=== PATIENT | male | born 1975 | race Hispanic/Latino ===

== ENCOUNTER 2017-11-23 20:26 | Emergency (ER) | payer OTHER ==
[2017-11-23] MEDS ORDERED: IBUPROFEN 400 MG TAB ONE (21:01)
[2017-11-23 21:38] LABS: Urine Blood NEGATIVE (NEG); Urine Glucose NEGATIVE (NEG); Urine Protein NEGATIVE (NEG); Urine pH 5.5 (5.0-7.0)
--- NOTE | 2017-11-23 22:33 | EDPHYS ---
Physician Documentation [facility] Name: Nadja Sebastian Age: 42 yrs Sex: Male : 1975 Arrival Date: 11/23/2017 Time: 20:27 Bed 24 Private MD: ED Physician Kavon Lowe HPI: 11/23 21:39 This 42 yrs old Male presents to ER via Ambulatory with complaints of Flu cp Symptoms. Historical: - Allergies: 20:45 No Known Allergies; ak1 - Home Meds: 20:45 None [Active]; ak1 - PMHx: 20:45 None; ak1 - PSHx: 20:45 None; ak1 - Immunization history:: Adult Immunizations unknown. - Social history:: Smoking status: Patient/guardian denies using tobacco. ROS: 21:45 Constitutional: Positive for chills, fever, Negative for body aches, poor PO intake. cp 21:45 Eyes: Negative for injury, pain, redness, and discharge. cp 21:45 ENT: Positive for sore throat, Negative for drainage from ear(s), ear pain, difficulty swallowing, difficulty handling secretions. 21:45 Cardiovascular: Negative for chest pain, edema, palpitations. 21:45 Respiratory: Positive for cough, "sounds productive", shortness of breath, Negative for wheezing. 21:45 Abdomen/GI: Negative for abdominal pain, vomiting, diarrhea, constipation, black/tarry stool, rectal bleeding. 21:45 Back: Positive for pain at rest, pain with movement, of the right subscapular area and right mid back, Negative for injury or acute deformity. 21:45 : Negative for injury or acute deformity, urinary symptoms, testicular pain 21:45 Skin: Negative for cellulitis, rash. 21:45 Neuro: Negative for altered mental status, headache, weakness. 21:45 All other systems are negative. Exam: 21:52 Constitutional: The patient appears in no acute distress, alert, awake, cp non-diaphoretic, non-toxic, well developed, well nourished. 21:52 Head/Face: Normocephalic, atraumatic. Eyes: Pupils equal round and reactive to light, cp extra-ocular motions intact. Lids and lashes normal. Conjunctiva and sclera are non-icteric and not injected. Cornea within normal limits. Periorbital areas with no swelling, redness, or edema. ENT: Nares patent. No nasal discharge, no septal abnormalities noted. Tympanic membranes are normal and external auditory canals are clear. Oropharynx with no redness, swelling, or masses, exudates, or evidence of obstruction, uvula midline. Mucous membranes moist. Neck: Trachea midline, no thyromegaly or masses palpated, and no cervical lymphadenopathy. Supple, full range of motion without nuchal rigidity, or vertebral point tenderness. No Meningismus. Chest/axilla: Normal chest wall appearance and motion. Nontender with no deformity. No lesions are appreciated. 21:52 Cardiovascular: Rate: tachycardic, Rhythm: regular, Pulses: Pulses are 2+ in right radial artery and left radial artery. Edema: is not appreciated, JVD: is not appreciated. 21:52 Respiratory: the patient does not display signs of respiratory distress, Respirations: normal, no use of accessory muscles, no retractions, no splinting, no tachypnea, labored breathing, is not present, Breath sounds: are clear throughout, no decreased breath sounds, no stridor, no wheezing. 21:52 Abdomen/GI: Inspection: abdomen appears normal, Bowel sounds: active, all quadrants, Palpation: abdomen is soft and non-tender, in all quadrants, rebound tenderness, is not appreciated, voluntary guarding, is not appreciated, involuntary guarding, is not appreciated. 21:52 Back: pain, that is moderate, of the right subscapular area and right mid back, ROM is normal, vertebral tenderness, is not appreciated. 21:52 Skin: cellulitis, is not appreciated, no rash present. 21:52 Neuro: Orientation: to person, place \\T\\ time. Mentation: lucid, able to follow commands, Cerebellar function: is grossly normal, Motor: moves all fours, strength is normal, Sensation: is normal. Vital Signs: 20:43 BP 127 / 89; Pulse 108; Resp 18; Temp 101.1(O); Pulse Ox 96% on R/A; Weight 81.65 kg ak1 (R); Height 5 ft. 5 in. (165.10 cm) (R); Pain 7/10; 21:48 BP 120 / 82; Pulse 93; Resp 18; Temp 99.4; Pulse Ox 94% on R/A; kr2 23:00 BP 122 / 80; Pulse 94; Resp 17; Pulse Ox 97% on R/A; kr2 20:43 Body Mass Index 29.95 (81.65 kg, 165.10 cm) ak1 MDM: 21:09 Patient medically screened. cp 21:30 Differential diagnosis: bronchitis, flu, pneumonia, pyelonephritis, UTI. cp 22:28 Data reviewed: vital signs, nurses notes, lab test result(s), radiologic studies, plain cp films. 22:32 Counseling: I had a detailed discussion with the patient and/or guardian regarding: the cp historical points, exam findings, and any diagnostic results supporting the discharge/admit diagnosis, lab results, radiology results, the need for outpatient follow up, a family practitioner, to return to the emergency department if symptoms worsen or persist or if there are any questions or concerns that arise at home. 22:32 Response to treatment: the patient's symptoms have mildly improved after treatment, cp VSS. No signs of respiratory distress noted. Will discharge to home for continued monitoring, and as a result, I will discharge patient. 11/23 20:44 Order name: Flu ak1 11/23 20:44 Order name: Strep ak1 11/23 21:14 Order name: Group A Streptococcus Rapid Sc; Complete Time: 21:38 EDMS 11/23 21:15 Order name: Influenza Screen (A ; Complete Time: 21:38 EDMS 11/23 21:18 Order name: Urine Dipstick--Ancillary (enter results) rg2 11/23 21:38 Order name: Urine Dipstick-Ancillary; Complete Time: 22:29 EDMS 11/23 21:39 Order name: XRAY Chest Pa And Lat (2 Views) cp Administered Medications: 20:44 Drug: Ibuprofen 800 mg Route: PO; ak1 22:55 Drug: Augmentin 875 mg Route: PO; kr2 23:05 Follow up: Response: Medication administered at discharge. kr2 22:55 Drug: Zithromax 500 mg Route: PO; kr2 23:05 Follow up: Response: Medication administered at discharge. kr2 Disposition: 11/24 02:06 Co-signature as Attending Physician, Kavon Lowe MD. pkl Disposition: 11/23/17 22:31 Discharged to Home. Impression: Pneumonia due to other specified bacteria - Right Lung. - Condition is Stable. - Discharge Instructions: Pneumonia, Adult. - Prescriptions for Augmentin 875- 125 mg Oral Tablet - take 1 tablet by ORAL route every 12 hours for 10 days; 20 tablet. Zithromax Z- Dhruv 250 mg Oral Tablet - take 1 tablet by ORAL route as directed for 5 days Day 1 - take two (2) tablets one time. Day 2, 3, 4 , 5 take one (1) tablet once daily.; 6 tablet. Albuterol Sulfate 90 mcg/actuation - inhale 1-2 puff by INHALATION route every 4-6 hours; 1 Inhaler. Ibuprofen 800 mg Oral Tablet - take 1 tablet by ORAL route every 8 hours As needed take with food; 30 tablet. - Medication Reconciliation Form, Thank You Letter, Antibiotic Education, Prescription Opioid Use form. - Follow up: Private Physician; When: 2 - 3 days; Reason: Recheck today's complaints. - Problem is new. - Symptoms are unchanged. Signatures: Dispatcher [employer] EDKavon Motley MD MD pkl Krenek, Amber RN RN ak1 Pako Hull PA PA cp Reaves, Karey, RN RN kr2
--- NOTE | 2017-11-23 22:33 | ER ---
Nurse's Notes [facility] Name: Nadja Sebastian Age: 42 yrs Sex: Male : 1975 Arrival Date: 11/23/2017 Time: 20:27 Bed 24 Private MD: Diagnosis: Pneumonia due to other specified bacteria-Right Lung Presentation: 11/23 20:44 Presenting complaint: Patient states: lower back pain, body aches, fever, throat pain, ak1 cough, congestion X3 days. Transition of care: patient was not received from another setting of care. Onset of symptoms was November 20, 2017. Care prior to arrival: None. 20:44 Acuity: IRVIN 4 ak1 20:44 Method Of Arrival: Ambulatory ak1 Triage Assessment: 20:45 General: Appears in no apparent distress. Behavior is calm, cooperative. Pain: ak1 Complains of pain in throat, lower back. EENT: Oral mucosa is moist. Throat is reddened with gag reflex present. Neuro: No deficits noted. Cardiovascular: No deficits noted. Respiratory: Reports cough that is. GI: Reports nausea. : No signs and/or symptoms were reported regarding the genitourinary system. Derm: Reports fever. 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 Historical: - Allergies: 20:45 No Known Allergies; ak1 - Home Meds: 20:45 None [Active]; ak1 - PMHx: 20:45 None; ak1 - PSHx: 20:45 None; ak1 - Immunization history:: Adult Immunizations unknown. - Social history:: Smoking status: Patient/guardian denies using tobacco. Screenin:46 Abuse screen: Denies threats or abuse. Denies injuries from another. Nutritional ak1 screening: No deficits noted. Tuberculosis screening: No symptoms or risk factors identified. Fall Risk None identified. Assessment: 21:15 General: Appears in no apparent distress. comfortable, well groomed, well developed, kr2 well nourished, Behavior is calm, cooperative, appropriate for age. Pain: Denies pain. Neuro: Level of Consciousness is awake, alert, obeys commands, Oriented to person, place, time, situation, Appropriate for age. Cardiovascular: Capillary refill < 3 seconds in bilateral fingers Patient's skin is warm and dry. Respiratory: Reports cough that is productive, Airway is patent Respiratory effort is even, unlabored, Respiratory pattern is regular, symmetrical. GI: Abdomen is flat, non-distended. : No signs and/or symptoms were reported regarding the genitourinary system. EENT: Nares are clear bilaterally Oral mucosa is moist. Reports nasal congestion nasal discharge. Derm: Skin is intact, is healthy with good turgor, Skin is pink, warm \T\ dry. Musculoskeletal: Circulation, motion, and sensation intact. Vital Signs: 20:43 BP 127 / 89; Pulse 108; Resp 18; Temp 101.1(O); Pulse Ox 96% on R/A; Weight 81.65 kg ak1 (R); Height 5 ft. 5 in. (165.10 cm) (R); Pain 7/10; 21:48 BP 120 / 82; Pulse 93; Resp 18; Temp 99.4; Pulse Ox 94% on R/A; kr2 23:00 BP 122 / 80; Pulse 94; Resp 17; Pulse Ox 97% on R/A; kr2 20:43 Body Mass Index 29.95 (81.65 kg, 165.10 cm) ak1 ED Course: 20:27 Patient arrived in ED. al2 20:44 Arm band placed on Patient placed in waiting room, Patient notified of wait time. ak1 Antipyretics given from triage as ordered by an ER provider. flu and strep swabs sent to lab. 20:45 Triage completed. ak1 20:46 Patient has correct armband on for positive identification. ak1 21:07 Urine obtained. ak1 21:09 Pako Hull PA is PHCP. cp 21:09 Kavon Lowe MD is Attending Physician. cp 21:20 Jessica Rodriguez, PASCALE is Primary Nurse. kr2 22:25 X-ray completed. Portable x-ray completed in exam room. Patient tolerated procedure ag1 well. 23:00 No provider procedures requiring assistance completed. Patient did not have IV access kr2 during this emergency room visit. Administered Medications: 20:44 Drug: Ibuprofen 800 mg Route: PO; ak1 22:55 Drug: Augmentin 875 mg Route: PO; kr2 23:05 Follow up: Response: Medication administered at discharge. kr2 22:55 Drug: Zithromax 500 mg Route: PO; kr2 23:05 Follow up: Response: Medication administered at discharge. kr2 Outcome: 22:31 Discharge ordered by . taurus 23:00 Discharged to home ambulatory. kr2 23:00 Condition: good 23:00 Discharge instructions given to patient, Instructed on discharge instructions, follow up and referral plans. medication usage, Demonstrated understanding of instructions, follow-up care, medications, Prescriptions given X 4. 23:05 Patient left the ED. kr2 Signatures: Lynnette Lane RN RN ak1 Anuradha Penaloza ag1 Pako Hull PA PA cp Reaves, Karey, RN RN kr2 Gwen Orta2
[2017-11-23] MEDS ORDERED: AZITHROMYCIN 250 MG TAB ONE (23:07)
[2017-11-23] MEDS ORDERED: AMOX/K CLAV 875 MG TAB ONE (23:07)
[2017-11-23 23:13] VITALS: BP 120/82; TEMP 99.4; O2SAT 94
--- NOTE | 2017-11-24 10:53 | RAD REPORT ---
EXAM DESCRIPTION: Jihan Kimble And Lita (2 Views)11/23/2017 10:27 pm CLINICAL HISTORY: Cough COMPARISON: None FINDINGS: Mild opacities are present within the medial right lung base. The remainder of the lungs appear clear of Infiltrate. The heart is normal size IMPRESSION: Mild right pneumonia. This should be followed until it is clear to exclude a post obstr uctive process/underlying mass
== END 2017-11-23 23:05 | disposition home or self-care (01) ==
LOC: ER 20:26
DX: J15.8 Pneumonia due to other specified bacteria (principal)
CPT/HCPCS: 71046; 81003; 87070; 87081; 87804; 99283

== ENCOUNTER 2018-11-03 11:33 | Observation (INO) | payer BC, OTHER ==
--- NOTE | 2018-11-03 12:57 | RAD REPORT ---
EXAM DESCRIPTION: Jihan Single View11/03/2018 12:40 pm CLINICAL HISTORY: Chest pain COMPARISON: November 2017 FINDINGS: The lungs appear clear of acute infiltrate. The heart is normal size IMPRESSION: No acute abnormalities displayed
[2018-11-03] MEDS ORDERED: MORPHINE 2 MG/ML SYR ONE (13:09)
[2018-11-03] MEDS ORDERED: ONDANSETRON 4 MG/2 ML VIAL ONE (13:09)
[2018-11-03 13:16] LABS: Absolute Lymphocytes (CBC) 1.3 K/uL (0.7-4.9); Absolute Monocytes 0.6 K/uL (0.1-1.3); Absolute Neutrophil 4.4 K/uL (1.8-8.0); Basophils % 0.6 % (0-1.3); Eosinophils % 0.6 % (0-4.4); Hematocrit 44.5 % (39.6-49.0); MPV 8.2 fL (7.6-11.3); Monocytes % 8.7 % (3.3-12.3); RBC Red Blood Cell Count 4.75 M/uL (4.33-5.43)
[2018-11-03 13:20] LABS: Protime INR 1.13
[2018-11-03 13:35] LABS: ALT/SGPT 25 U/L (12-78); AST/SGOT 18 U/L (15-37); Albumin 4.2 g/dL (3.4-5.0); Alkaline Phosphatase 76 U/L (45-117); BUN Blood Urea Nitrogen 16 mg/dL (7-18); Bicarbonate 28 mmol/L (21-32); Bilirubin Direct 0.1 mg/dL (0-0.2); Bilirubin Total 0.6 mg/dL (0.2-1.0); Glucose Level 108 mg/dL (74-106); Magnesium 2.2 mg/dL (1.8-2.4); Potassium 4.7 mmol/L (3.5-5.1); Protein, Total 8.3 g/dL (6.4-8.2); Sodium Level 136 mmol/L (136-145); Troponin (Emerg Dept Use Only) < 0.02 ng/mL (0.0-0.045)
[2018-11-03 13:55] LABS: NT PRO-BNP < 5 pg/mL (<125)
--- NOTE | 2018-11-03 14:13 | EDPHYS ---
Physician Documentation [facility] Name: Nadja Sebastian Age: 43 yrs Sex: Male : 1975 Arrival Date: 11/03/2018 Time: 11:36 Bed 17 Private MD: None, None ED Physician Pako Corona HPI: 11/03 12:06 This 43 yrs old Male presents to ER via Ambulatory with complaints of Chest jmm Pain, Arm Pain, Headache. 12:06 The patient or guardian reports chest pain that is located primarily in the substernal jmm area. Onset: gradually, 1 day(s) ago. The pain radiates to the left arm, left neck. The chest pain is described as aching. Duration: The patient or guardian reports a single episode, that is still ongoing. This is a 43 year old male with a history of hlp that presents to the ED with complaints of left sided chest pain worsened with exertion beginning yesterday at around 6 pm. Patient states the pain radiates to the left arm and left side of his neck. . Historical: - Allergies: 11:48 No Known Allergies; hb - Home Meds: 11:48 gemfibrozil 600 mg Oral tab 1 tab 2 times per day [Active]; hb - PMHx: 11:48 Hyperlipidemia; hb - PSHx: 11:48 None; hb - Immunization history:: Adult Immunizations up to date. - Social history:: Smoking status: Patient/guardian denies using tobacco. - Ebola Screening: : No symptoms or risks identified at this time. ROS: 12:06 Constitutional: Negative for fever, chills, and weight loss. jmm 12:06 Cardiovascular: Positive for chest pain. 12:06 MS/extremity: Positive for pain. 12:06 All other systems are negative. Exam: 12:06 Constitutional: This is a well developed, well nourished patient who is awake, alert, jmm and in no acute distress. Head/Face: atraumatic. Eyes: EOMI, no conjunctival erythema appreciated ENT: Moist Mucus Membranes Neck: Trachea midline, Supple Chest/axilla: Normal chest wall appearance and motion. 12:06 Cardiovascular: Rate: normal, Rhythm: regular. 12:06 Respiratory: the patient does not display signs of respiratory distress, Respirations: normal, Breath sounds: are clear throughout. 12:06 Abdomen/GI: Inspection: abdomen appears normal, Bowel sounds: normal, Palpation: abdomen is soft and non-tender, in all quadrants. 12:06 Back: ROM is normal. 12:06 Musculoskeletal/extremity: ROM: intact in all extremities. 12:06 Skin: Appearance: Color: normal in color. 12:06 Neuro: Orientation: is normal, Mentation: is normal, Memory: is normal. Vital Signs: 11:46 BP 150 / 98; Pulse 90; Resp 18; Temp 98.3; Pulse Ox 100% on R/A; Pain 6/10; hb 12:30 BP 128 / 78; Pulse 77; Resp 18; Pulse Ox 99% on R/A; em 13:30 BP 122 / 77; Pulse 74; Resp 18; Pulse Ox 100% on R/A; Pain 0/10; em 14:30 BP 123 / 86; Pulse 71; Resp 16; Pulse Ox 99% on R/A; em 15:31 BP 124 / 83; Pulse 78; Resp 20; Pulse Ox 100% on R/A; em MDM: 12:06 Patient medically screened. ravinder 14:11 The patient was given aspirin in the Emergency Department. Data reviewed: vital signs, [facility] nurses notes, lab test result(s), EKG, radiologic studies, plain films. Data interpreted: Pulse oximetry: on room air is 100 %. Interpretation: normal. Counseling: I had a detailed discussion with the patient and/or guardian regarding: the historical points, exam findings, and any diagnostic results supporting the discharge/admit diagnosis, lab results, radiology results, the need for further work-up and treatment in the hospital. ED course: I discussed the patient with Dr. Mcmillan whom accepted admission. . 11/03 12:15 Order name: Basic Metabolic Panel; Complete Time: 13:57 [facility] 11/03 12:15 Order name: CBC with Diff; Complete Time: 13:57 [facility] 11/03 12:15 Order name: LFT's; Complete Time: 13:57 [facility] 11/03 12:15 Order name: Magnesium; Complete Time: 13:57 [facility] 11/03 12:15 Order name: NT PRO-BNP; Complete Time: 13:57 [facility] 11/03 12:15 Order name: PT-INR; Complete Time: 13:57 [facility] 11/03 12:15 Order name: Troponin (emerg Dept Use Only); Complete Time: 13:57 [facility] 11/03 12:15 Order name: XRAY Chest (1 view); Complete Time: 12:58 [facility] 11/03 12:15 Order name: EKG; Complete Time: 12:16 [facility] 11/03 12:15 Order name: Cardiac monitoring; Complete Time: 13:08 [facility] 11/03 12:15 Order name: EKG - Nurse/Tech; Complete Time: 12:42 [facility] 11/03 12:15 Order name: IV Saline Lock; Complete Time: 13:08 [facility] 11/03 12:15 Order name: Labs collected and sent; Complete Time: 13:08 [facility] 11/03 12:15 Order name: O2 Per Protocol; Complete Time: 13:08 [facility] 11/03 12:15 Order name: O2 Sat Monitoring; Complete Time: 13:08 [facility] Administered Medications: 13:07 Drug: Zofran 4 mg Route: IVP; Site: right antecubital; hb 14:49 Follow up: Response: No adverse reaction em 13:08 Drug: morphine 2 mg Route: IVP; Site: right antecubital; hb 14:49 Follow up: Response: No adverse reaction; Pain is decreased em 14:24 Drug: Aspirin Chewable Tablet 324 mg Route: PO; em 14:50 Follow up: Response: No adverse reaction em Disposition: 11/04 07:51 Co-signature as Attending Physician, Pako Corona MD I agree with the assessment and ravinder plan of care. Disposition: 11/03/18 14:12 Hospitalization ordered by Figueroa Mcmillan for Observation. Preliminary diagnosis is Chest pain, unspecified. - Bed requested for Telemetry/MedSurg (observation). - Status is Observation. em - Condition is Stable. - Problem is new. - Symptoms have improved. UTI on Admission? No Signatures: Dispatcher [employer] Pako Head MD MD cha Mickail, Joel, PA PA jmm Munoz, Edgar, CAMPAIGN WORKER CAMPAIGN WORKER Patricia Mcdonald ms, Heather, RN RN hb Corrections: (The following items were deleted from the chart) 11/03 15:21 14:12 Hospitalization Ordered by Figueroa Mcmillan DO for Observation. Preliminary ms diagnosis is Chest pain, unspecified. Bed requested for Telemetry/MedSurg (observation). Status is Observation. Condition is Stable. Problem is new. Symptoms have improved. UTI on Admission? No. jmm 15:50 15:21 11/03/2018 14:12 Hospitalization Ordered by Figueroa Mcmillan DO for Observation. em Preliminary diagnosis is Chest pain, unspecified. Bed requested for Telemetry/MedSurg (observation). Status is Observation. Condition is Stable. Problem is new. Symptoms have improved. UTI on Admission? No. ms
--- NOTE | 2018-11-03 14:13 | ER ---
Nurse's Notes [facility] Name: Nadja Sebastian Age: 43 yrs Sex: Male : 1975 Arrival Date: 11/03/2018 Time: 11:36 Bed 17 Private MD: None, None Diagnosis: Chest pain, unspecified Presentation: 11/03 11:46 Presenting complaint: Left sided chest pain that radiates to left arm and left side of hb neck that started while driving yesterday. Also c/o headache and nausea. Transition of care: patient was not received from another setting of care. Onset of symptoms was November 02, 2018. Risk Assessment: Do you want to hurt yourself or someone else? Patient reports no desire to harm self or others. Care prior to arrival: None. 11:46 Method Of Arrival: Ambulatory 11:46 Acuity: IRVIN 3 hb 12:15 Initial Sepsis Screen: Does the patient meet any 2 criteria? No. Patient's initial em sepsis screen is negative. Does the patient have a suspected source of infection? No. Patient's initial sepsis screen is negative. Historical: - Allergies: 11:48 No Known Allergies; hb - Home Meds: 11:48 gemfibrozil 600 mg Oral tab 1 tab 2 times per day [Active]; hb - PMHx: 11:48 Hyperlipidemia; hb - PSHx: 11:48 None; hb - Immunization history:: Adult Immunizations up to date. - Social history:: Smoking status: Patient/guardian denies using tobacco. - Ebola Screening: : No symptoms or risks identified at this time. Screenin:15 Abuse screen: Denies threats or abuse. Nutritional screening: No deficits noted. em Tuberculosis screening: No symptoms or risk factors identified. Fall Risk None identified. Assessment: 12:15 General: Appears in no apparent distress. comfortable, Behavior is calm, cooperative, em Denies fever. Pain: Complains of pain in anterior aspect of left upper chest Pain radiates to left jaw Pain currently is 6 out of 10 on a pain scale. Pain began 1 day ago. Neuro: Level of Consciousness is awake, alert, obeys commands, Oriented to person, place, time, situation, Reports headache in left. Cardiovascular: Reports chest pain, fatigue, shortness of breath, Denies diaphoresis, nausea, Capillary refill < 3 seconds Patient's skin is warm and dry. Rhythm is sinus arrythmia. Respiratory: Airway is patent Respiratory effort is even, unlabored, Respiratory pattern is regular, symmetrical, Breath sounds are clear bilaterally. Denies cough. GI: Abdomen is flat, Patient currently denies nausea, vomiting. Derm: Skin is intact, is healthy with good turgor, Skin is pink, warm \T\ dry. Musculoskeletal: Range of motion: intact in all extremities. 12:30 Reassessment: I agree with previous assessment. hb 13:00 Reassessment: Patient appears in no apparent distress at this time. Patient and/or em family updated on plan of care and expected duration. Pain level reassessed. Patient is alert, oriented x 3, equal unlabored respirations, skin warm/dry/pink. Patient denies pain at this time. Patient states feeling better. 13:55 Reassessment: Patient appears in no apparent distress at this time. Patient and/or em family updated on plan of care and expected duration. Pain level reassessed. Patient is alert, oriented x 3, equal unlabored respirations, skin warm/dry/pink. Patient denies pain at this time. Patient states feeling better. 14:57 Reassessment: Patient appears in no apparent distress at this time. Patient and/or em family updated on plan of care and expected duration. Pain level reassessed. Patient is alert, oriented x 3, equal unlabored respirations, skin warm/dry/pink. pending rooms assignment Patient denies pain at this time. Patient states feeling better. Vital Signs: 11:46 BP 150 / 98; Pulse 90; Resp 18; Temp 98.3; Pulse Ox 100% on R/A; Pain 6/10; hb 12:30 BP 128 / 78; Pulse 77; Resp 18; Pulse Ox 99% on R/A; em 13:30 BP 122 / 77; Pulse 74; Resp 18; Pulse Ox 100% on R/A; Pain 0/10; em 14:30 BP 123 / 86; Pulse 71; Resp 16; Pulse Ox 99% on R/A; em 15:31 BP 124 / 83; Pulse 78; Resp 20; Pulse Ox 100% on R/A; em ED Course: 11:36 Patient arrived in ED. mr 11:36 None, None is Private Physician. mr 11:46 Blaine Mccall, JOLENE is Primary Nurse. em 11:48 Triage completed. hb 11:48 Arm band placed on. EKG completed in triage. Results shown to MD. hb 12:01 Ovi Regan PA is PHCP. jmm 12:02 Pako Corona MD is Attending Physician. jmm 12:15 Patient has correct armband on for positive identification. Placed in gown. Call light em in reach. Side rails up X2. Adult w/ patient. hospital monitor on. Pulse ox on. NIBP on. 12:24 EKG done, by ED staff, reviewed by Ovi CHILD. em 12:41 XRAY Chest (1 view) In Process Unspecified. EDMS 13:00 Initial lab(s) drawn, by me, sent to lab. Inserted saline lock: 20 gauge in right em antecubital area, using aseptic technique. Blood collected. Patient maintains SpO2 saturation greater than 95% on room air. 14:12 Figueroa Mcmillan DO is Hospitalizing Provider. [facility] 15:38 No provider procedures requiring assistance completed. Patient admitted, IV remains in em place. Administered Medications: 13:07 Drug: Zofran 4 mg Route: IVP; Site: right antecubital; hb 14:49 Follow up: Response: No adverse reaction em 13:08 Drug: morphine 2 mg Route: IVP; Site: right antecubital; hb 14:49 Follow up: Response: No adverse reaction; Pain is decreased em 14:24 Drug: Aspirin Chewable Tablet 324 mg Route: PO; em 14:50 Follow up: Response: No adverse reaction em Outcome: 14:12 Decision to Hospitalize by Provider. [facility] 15:38 Admitted to Tele accompanied by tech, via wheelchair, room 425, with chart, Report em called to PASCALE Newby 15:38 Condition: good 15:38 Instructed on the need for admit, Demonstrated understanding of instructions. 15:50 Patient left the ED. em Signatures: Dispatcher [employer] EDOvi Hoover PA PA jmm CanTatiana mr Mccall, Blaine, JOLENE UNDERCOLLAR BASTER em Marybeth Deras RN RN hb
[2018-11-03] MEDS ORDERED: ASPIRIN 81 MG CHEWABLE TABLET ONE (14:33)
--- NOTE | 2018-11-03 14:35 | P.HP ---
Certification for Inpatient Patient admitted to: Observation With expected LOS: <2 Midnights Patient will require the following post-hospital care: None Practitioner: I am a practitioner with admitting privileges, knowledge of patient current condition, hospital course, and medical plan of care. Services: Services provided to patient in accordance with Admission requirements found in Title 42 Section 412.3 of the Code of Federal Regulations Patient History Date of Service: 11/03/18 Primary Care Provider: None Reason for admission: Chest pain History of Present Illness: 43-year-old male presented to the emergency room with chest pain. Patient reports chest pain since yesterday. Chest pain occurs at rest. Is mainly to the left side. It radiates the arm and neck. Associated with some mild shortness of breath and headaches. He has not had this type of pain before. There is a family history of Coronary artery disease. He does have a history of hypertriglyceridemia. In the ER patient evaluated. Vital signs stable. EKG showed no significant ST changes. Initial troponin unremarkable. Chest x-ray unremarkable. Lab unremarkable. Patient admitted for observation. When I saw the patient the ER, he appeared stable. No pain noted. Patient was given morphine with improvement Allergies No Known Allergies Allergy (Unverified 07/29/12 13:05) Home medications list reviewed: Yes - Past Medical/Surgical History Diabetic: No -: Hypertriglyceridemia -: Left ankle surgery Psychosocial/ Personal History: Patient is - Family History Father -: Heart disease, Hypertension - Social History Smoking Status: Never smoker Alcohol use: Yes CD- Drugs: No Caffeine use: Yes Place of Residence: Home Review of Systems General: As per HPI Eyes: Unremarkable ENT: Unremarkable Respiratory: Shortness of Breath, As per HPI Cardiovascular: Chest Pain, As per HPI Gastrointestinal: Unremarkable Genitourinary: Unremarkable Musculoskeletal: Unremarkable Integumentary: Unremarkable Neurological: Unremarkable Lymphatics: Unremarkable Physical Examination - Physical Exam General: Alert, In no apparent distress, Oriented x3, Cooperative HEENT: Atraumatic, Normocephalic, PERRLA, Mucous membr. moist/pink Neck: Supple, No Thyromegaly Respiratory: Clear to auscultation bilaterally, Normal air movement Cardiovascular: Normal pulses, Regular rate/rhythm Gastrointestinal: Normal bowel sounds, Soft and benign, Non-distended, No ascites, No tenderness, No masses, No rebound, No guarding Musculoskeletal: No erythema, No tenderness, No warmth Integumentary: No tenderness/swelling, No erythema, No warmth, No cyanosis Neurological: Normal speech, Normal strength at 5/5 x4 extr, Normal tone, Normal affect - Studies Laboratory Data (last 24 hrs) 11/03/18 13:00: PT 13.3 H, INR 1.13 11/03/18 13:00: WBC 6.3, Hgb 15.2, Hct 44.5, Plt Count 344 11/03/18 13:00: Sodium 136, Potassium 4.7, BUN 16, Creatinine 1.01, Glucose 108 H, Magnesium 2.2, Total Bilirubin 0.6, AST 18, ALT 25, Alkaline Phosphatase 76 Assessment and Plan - Plan Impression: Chest pain with family history of heart disease Hypertriglyceridemia Plan: Patient will be admitted for further evaluation. Will continue to monitor cardiac enzymes and telemetry. Will obtain lipid panel in the morning. Will continue with his Lopid but add fish oil 2000 mg twice daily. Will order echocardiogram and cardiac stress test to further evaluate. Cardiology consulted to further address as well. Will continue with aspirin, nitro as needed, and morphine as needed. If workup unremarkable then anticipate discharge tomorrow. I will turn over the service to Dr. Brown tomorrow. I will go over the plan of care with her. Discharge Plan: Home Plan to discharge in: 24 Hours - Advance Directives Does patient have a Living Will: No Does patient have a Durable POA for Healthcare: No - Code Status/Comfort Care Code Status Assessed: Yes (Patient full code.) Time Spent Managing Pts Care (In Minutes): 55
[2018-11-03] MEDS ORDERED: ACETAMINOPHEN 500 MG TAB PO PRN (16:07)
[2018-11-03] MEDS ORDERED: HYDRALAZINE HCL 20 MG/ML VIAL IV PRN (16:07)
[2018-11-03] MEDS ORDERED: ONDANSETRON 4 MG/2 ML VIAL IV PRN (16:07)
[2018-11-03] MEDS ORDERED: MORPHINE 2 MG/ML SYR IV PRN (16:07)
[2018-11-03] MEDS ORDERED: NITROGLYCERIN 0.4 MG/TAB SL PRN (16:07)
[2018-11-03 16:33] VITALS: BMI 29.9
[2018-11-03] MEDS: ENOXAPARIN 40 MG/0.4 ML SQ SCH (16:52)
[2018-11-03 16:57] LABS: CKMB Creatine Kinase MB < 1.0 ng/mL (0.3-3.6); Creatine Phosphokinase 87 U/L (39-308); Troponin I < 0.02 ng/mL (0.0-0.045)
[2018-11-03 17:04] LABS: Thyroid Stimulating Hormone 1.22 uIU/mL (0.360-3.740)
[2018-11-03 17:38] LABS: Urine Appearance CLEAR; Urine Bilirubin NEGATIVE (NEG); Urine Blood NEGATIVE (NEG); Urine Color YELLOW; Urine Glucose NEGATIVE (NEG); Urine Protein NEGATIVE (NEG); Urine Specific Gravity 1.025 (1.005-1.030); Urine Urobilinogen 0.2 mg/dL (0.2-1.0)
[2018-11-03] MEDS ORDERED: INFLUENZA VACCINE (for 3y+) 0.5 ML DOSE IMVAC ONE (18:00)
[2018-11-03 18:27] LABS: Urine Microscopic Reflex NO UMIC
[2018-11-03] MEDS: DOCOSAHEXANOIC AC/EPA 1000 MG PO SCH (20:38)
[2018-11-03] MEDS: GEMFIBROZIL 600 MG TAB PO SCH (20:40)
--- NOTE | 2018-11-03 22:44 | EKG ---
Test Date: 2018-11-03 Test Time: 12:21:51 Partnership Marketing Manager: BRIAN MEASUREMENT RESULTS: Intervals: Rate: 88 OK: 144 QRSD: 88 QT: 362 QTc: 438 [place]: P: 56 OK: 144 QRS: 22 T: 44 INTERPRETIVE STATEMENTS: Normal sinus rhythm with sinus arrhythmia Nonspecific T wave abnormality Abnormal ECG Compared to ECG 08/18/2010 04:34:56 T-wave abnormality now present Electronically Signed On 11-03-18 22:43:20 FOREIGN LANGUAGES PROFESSOR by Abner Lewis
[2018-11-04 01:17] LABS: CKMB Creatine Kinase MB < 1.0 ng/mL (0.3-3.6); Creatine Phosphokinase 83 U/L (39-308); Troponin I < 0.02 ng/mL (0.0-0.045)
[2018-11-04 04:23] LABS: Absolute Lymphocytes (CBC) 1.9 K/uL (0.7-4.9); Absolute Monocytes 0.6 K/uL (0.1-1.3); Basophils % 0.6 % (0-1.3); Eosinophils % 1.5 % (0-4.4); Hematocrit 43.3 % (39.6-49.0); Lymphocytes % 33.5 % (15.3-44.8); MPV 8.3 fL (7.6-11.3); Monocytes % 11.2 % (3.3-12.3); RBC Red Blood Cell Count 4.59 M/uL (4.33-5.43)
[2018-11-04 04:41] LABS: BUN Blood Urea Nitrogen 17 mg/dL (7-18); Bicarbonate 32 mmol/L (21-32); Glucose Level 94 mg/dL (74-106); HDL Cholesterol 35 mg/dL (40-60); LDL Cholesterol, Calculated ND (<130); Magnesium 2.3 mg/dL (1.8-2.4); Sodium Level 140 mmol/L (136-145)
[2018-11-04 05:17] LABS: LDL, Direct 160 mg/dL (100-129)
[2018-11-04] MEDS ORDERED: REGADENOSON 0.4 MG/5 ML SYR IV ONE (08:05)
[2018-11-04] MEDS ORDERED: ASPIRIN EC 81 MG TAB PO SCH (09:00)
[2018-11-04] MEDS: ENOXAPARIN 40 MG/0.4 ML SQ SCH (09:00)
--- NOTE | 2018-11-04 10:38 | CON ---
CARDIOLOGY CONSULT History Of Present Illness: Mr. Sebastian had an episode of chest pain, it was 3 p.m. yesterday, laste d just a few minutes. Since he has been in the hospital, EKGs and enzymes are normal. We plan to do a pharmacologic nuclear stress test and an echocardiogram and see if he has any evidence of CAD. He does not have exertional intolerance. Does not have diabetes or hypertension. He takes gemfibrozil 600 b.i.d. for hypertriglyceridemia but has mixed dyslipidemia and would really benefit from a high dose statin therapy. He uses no tobacco. Family History: Positive for CAD. Physical Examination: General: Five feet and 5 inches, weight 180 pounds. Obese, alert, oriented, pleasant, cooperative, no t in distress. Lungs: Clear. Heart: Exam normal. Abdomen: Soft. Extremities: Normal. Assessment And Plan: We will be ready to do a cardiac cath with a stress test or echo indicated, but I think he needs aggressive lipid management as an outpatient. KONSTANTIN Voice ID: [id number] Report ID: [id number]
[2018-11-04 12:38] VITALS: O2SAT 97
--- NOTE | 2018-11-04 14:24 | RAD REPORT ---
EXAM DESCRIPTION: NM - Rest Stress Cardiac Imaging - 11/04/2018 2:08 pm CLINICAL HISTORY: CP Chest pain. COMPARISON: No comparisons TECHNIQUE: The patient was administered approximately 10mCi of Tc 99m Sestamibi prior to resting SPE CT imaging of the heart. The patient was then administered approximately 30 mCi of Tc 99m Sestamibi f ollowing exercise or pharmacologic stress. Multiplanar SPECT images were reviewed. FINDINGS: No stress induced ischemic defect is seen to suggest stress induced ischemia. No fixed def ect is seen to suggest hibernating myocardium or scarred myocardium. The end diastolic volume is 77 ml, the end systolic volume is 31 ml, and the ejection fraction is 60 %. IMPRESSION: No stress induced ischemia.
[2018-11-04] MEDS: GEMFIBROZIL 600 MG TAB PO SCH (15:06)
[2018-11-04] MEDS: DOCOSAHEXANOIC AC/EPA 1000 MG PO SCH (15:07)
--- NOTE | 2018-11-04 15:29 | ECHO ---
HEIGHT: 5 ft 5 in WEIGHT: 180 lb 0 oz DATE OF STUDY: 11/04/[address]: Figueroa Mcmillan DO 2-DIMENSIONAL: YES M.MODE: YES DOPPLER: YES COLOR FLOW: YES TDS: NO PORTABLE: NO DEFINITY: NO BUBBLE STUDY: NO DIAGNOSIS: CHEST PAIN CARDIAC HISTORY: CATHERIZATION: NO SURGERY: NO PROSTHETIC VALVE: NO PACEMAKER: NO MEASUREMENTS (cm) DIASTOLIC (NORMALS) SYSTOLIC (NORMALS) IVSd 1.1 (0.6-1.2) LA Diam (1.9-4.0) LVEF 68% LVIDd 3.5 (3.5-5.7) LVIDs 2.2 (2.0-3.5) %FS 37% LVPWd 1.0 (0.6-1.2) Ao Diam 2.3 (2.0-3.7) 2 DIMENSIONAL ASSESSMENT: RIGHT ATRIUM: NORMAL LEFT ATRIUM: NORMAL RIGHT VENTRICLE: NORMAL LEFT VENTRICLE: NORMAL TRICUSPID VALVE: NORMAL MITRAL VALVE: NORMAL PULMONIC VALVE: NORMAL AORTIC VALVE: NORMAL PERICARDIAL EFFUSION: NONE AORTIC ROOT: NORMAL LEFT VENTRICULAR WALL MOTION: NORMAL. DOPPLER/COLOR FLOW: NORMAL. COMMENTS: NORMAL 2D ECHO WITH DOPPLER. TECHNOLOGIST: SEMAJ PARISH
--- NOTE | 2018-11-04 15:37 | TREADPHA ---
DX: CHEST PAIN Date of Study: 11/04/18 Ht: 5 5 Wt: 180 lb 0 oz Consulting Physician: TOBIAS MEDICATIONS: TYLENOL, ASPIRIN, LOVENOX, FISH OIL, NITROSTAT. HISTORY: 43 YEAR OLD MALE HERE FOR CHEST PAIN. HISTORY OF HYPERLIPIDEMIA. PHYSICIAL EXAMINATION: RESTING B.P.: 127/80 RESTING H.R.: 86 RESTING EKG: NORMAL. PROTOCOL: LEXISCAN EXERCISE TIME: 3:30 B.P. AT PEAK STRESS: 122/64 IMPRESSION: LEXISCAN STRESS TEST PERFORMED. CARDIOLITE INJECTED PER PROTOCOL. NO ARRHYTHMIAS NOTED. DENIES ANY CHEST PAIN. SEE NUCLEAR MEDICINE REPORT. NON DIAGNOSTIC EKG WITH LEXISCAN STRESS.
[2018-11-04] MEDS ORDERED: INFLUENZA VACCINE (for 3y+) 0.5 ML DOSE IMVAC ONE (17:00)
[2018-11-04 17:12] VITALS: BP 119/58; TEMP 97.4
--- NOTE | 2018-11-04 17:52 | P.SSS ---
Patient History Date of Service: 11/04/18 Primary Care Provider: None Reason for admission: Chest pain History of Present Illness: 43-year-old male presented to the emergency room with chest pain. Patient reports chest pain since yesterday. Chest pain occurs at rest. Is mainly to the left side. It radiates the arm and neck. Associated with some mild shortness of breath and headaches. He has not had this type of pain before. There is a family history of Coronary artery disease. He does have a history of hypertriglyceridemia. In the ER patient evaluated. Vital signs stable. EKG showed no significant ST changes. Initial troponin unremarkable. Chest x-ray unremarkable. Lab unremarkable. Patient admitted for observation. Allergies No Known Allergies Allergy (Unverified 07/29/12 13:05) Home Medications: Gemfibrozil 600 mg PO BID 11/03/18 - Past Medical/Surgical History Has patient received pneumonia vaccine in the past: No Diabetic: No -: Hypertriglyceridemia -: Left ankle surgery Psychosocial/ Personal History: Patient is - Family History Father -: Heart disease, Hypertension - Social History Smoking Status: Never smoker Alcohol use: No CD- Drugs: No Caffeine use: Yes Place of Residence: Home Review of Systems 10-point ROS is otherwise unremarkable Physical Examination - Vital Signs Temperature: 97.4 F Blood Pressure: 119/58 Pulse: 89 Respirations: 18 Pulse Ox (%): 96 - Physical Exam General: Alert, In no apparent distress HEENT: Atraumatic, PERRLA, Mucous membr. moist/pink, EOMI, Sclerae nonicteric Neck: Supple, 2+ carotid pulse no bruit, No LAD, Without JVD or thyroid abnormality Respiratory: Clear to auscultation bilaterally, Normal air movement Cardiovascular: Regular rate/rhythm, Normal S1 S2 Gastrointestinal: Normal bowel sounds, No tenderness Musculoskeletal: No tenderness Integumentary: No rashes Neurological: Normal gait, Normal speech, Normal strength at 5/5 x4 extr, Normal tone, Normal affect Lymphatics: No axilla or inguinal lymphadenopathy - Diagnosis (Problem(s)) (1) Atypical chest pain Status: Acute (2) Hypertriglyceridemia Status: Acute Treatment Summary: Overall during the hospital stay patient remained stable Patient was initially admitted to the hospital for atypical chest pain. Troponin x2 was negative. EKG was negative. Cardiology was consulted. Who recommended patient get a echocardiogram and stress test which were both negative for acute coronary syndrome. Patient then was discharged home under stable condition. Patient was asked to continue taking his triglyceride medication for hypertriglyceridemia - Disposition Condition: GOOD Diet: Regular Activity: Ad zora
== END 2018-11-04 17:15 | disposition home or self-care (01) ==
LOC: ER 11:33 → ERHOLD 14:25 → 4TH 15:36
PROVIDERS: ADMIT Family Medicine; ATTEND Family Medicine
DX: R07.89 Other chest pain (principal); E78.1 Pure hyperglyceridemia; Z82.49 Family history of ischemic heart disease and other diseases of the circulatory system; Z23 Encounter for immunization
CPT/HCPCS: 36415; 71045; 78452; 80048; 80061; 80076; 81003; 82550; 82553; 83735; 83880; 84439; 84443; 84484; 85025; 85610; 93005; 93017; 93306; 96374; 96375; 99285; A9500; G0008; G0378; J1650; J2270; J2405; J2785; Q2035

== ENCOUNTER 2022-03-23 10:00 | Emergency (ER) | payer BC, OTHER ==
[2022-03-23] MEDS ORDERED: ONDANSETRON 4 MG/2 ML VIAL ONE (10:18)
[2022-03-23] MEDS ORDERED: MORPHINE 4 MG/ML SYR ONE (10:18)
[2022-03-23 10:27] LABS: Absolute Lymphocytes (CBC) 1.5 K/uL (0.7-4.9); Hematocrit 40.2 % (39.6-49.0); Lymphocytes % 22.4 % (15.3-44.8); MCV 92.6 fL (80-100); MPV 7.2 fL (7.6-11.3); RBC Red Blood Cell Count 4.34 M/uL (4.33-5.43)
[2022-03-23 10:40] LABS: Potassium 4.3 mmol/L (3.5-5.1)
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
--- NOTE | 2022-03-23 10:53 | RAD REPORT ---
EXAM DESCRIPTION: RAD - Knee Right 3 View - 03/23/2022 10:37 am CLINICAL HISTORY: Right knee pain status post injury FINDINGS: No fracture or dislocation is seen.
--- NOTE | 2022-03-23 10:53 | RAD REPORT ---
EXAM DESCRIPTION: RAD - Hip Right 2 View - 03/23/2022 10:33 am CLINICAL HISTORY: Right hip pain FINDINGS: No fracture or dislocation is seen. If the patient continues to have symptoms to suggest an occult fracture then MRI would be recommended
--- NOTE | 2022-03-23 10:54 | RAD REPORT ---
EXAM DESCRIPTION: RAD - Elbow Left 3 View - 03/23/2022 10:35 am CLINICAL HISTORY: Left elbow pain status post trauma FINDINGS: No fracture or dislocation is seen.
--- NOTE | 2022-03-23 10:55 | RAD REPORT ---
EXAM DESCRIPTION: Jihan Single View03/23/2022 10:33 am CLINICAL HISTORY: Chest pain COMPARISON: 2019 FINDINGS: The lungs appear clear of acute infiltrate. The heart is normal size IMPRESSION: No acute abnormalities displayed
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
[2022-03-23] MEDS ORDERED: KETOROLAC 30 MG/ML INJ ONE (11:42)
[2022-03-23 11:47] VITALS: TEMP 98.3
[2022-03-23 11:49] VITALS: BP 127/84; O2SAT 96
--- NOTE | 2022-03-25 09:06 | EKG ---
Test Date: 2022-03-23 Test Time: 10:18:51 Lactation Nurse: PATTY MEASUREMENT RESULTS: Intervals: Rate: 91 DC: 152 QRSD: 88 QT: 362 QTc: 445 Dewey: P: 69 DC: 152 QRS: 34 T: 38 INTERPRETIVE STATEMENTS: Normal sinus rhythm Normal ECG Compared to ECG 11/03/2018 12:21:51 Sinus arrhythmia no longer present T-wave abnormality no longer present Electronically Signed On 03-25-22 09:03:21 CDT by Jamie Womack
== END 2022-03-23 11:41 | disposition home or self-care (01) ==
LOC: ER 10:00
DX: G89.11 Acute pain due to trauma (principal); V03.90XA Pedestrian on foot injured in collision with car, pick-up truck or van, unspecified whether traffic or nontraffic accident, initial encounter; E78.5 Hyperlipidemia, unspecified; Z20.822 Contact with and (suspected) exposure to COVID-19
CPT/HCPCS: 93005; 85025; 80048; 36415; 72131; 71045; 72170; 73502; 73080; 73562; 96375; 96374; 99284; U0003; J2405

== ENCOUNTER 2022-07-18 11:01 | Day surgery (SDC) | payer OTHER ==
[2022-07-14 08:58] LABS: Absolute Lymphocytes (CBC) 1.4 K/uL (0.7-4.9); Hematocrit 42.2 % (39.6-49.0); Lymphocytes % 33.6 % (15.3-44.8); MPV 7.2 fL (7.6-11.3); RBC Red Blood Cell Count 4.45 M/uL (4.33-5.43)
[2022-07-14 09:01] LABS: Protime INR 1.03
[2022-07-14 09:12] LABS: Specific Gravity 1.027 (1.005-1.030); Urine Bilirubin NEGATIVE (Negative); Urine Blood Negative (Negative); Urine Clarity Clear (Clear); Urine Color Yellow (Yellow); Urine Glucose NEGATIVE (Negative); Urine Protein NEGATIVE (Negative); Urine Urobilinogen Normal (Normal)
[2022-07-14 09:19] LABS: Potassium 4.3 mmol/L (3.5-5.1)
[2022-07-18] MEDS ORDERED: CEFAZOLIN SODIUM 2 GM/VIAL ONE (11:16)
[2022-07-18] MEDS ORDERED: Ringers Lactate 1,000 ML IV ONE (11:16)
[2022-07-18] MEDS ORDERED: LIDOCAINE 1% MPF 30 ML VIAL ONE (14:17)
[2022-07-18] MEDS ORDERED: BUPIVACAINE 0.25% PF 30 ML VIAL ONE (14:20)
[2022-07-18] MEDS ORDERED: BACITRACIN OINTMENT 14 GM TUBE TOP ONE (14:20)
[2022-07-18] MEDS ORDERED: propofoL 200 MG/20 ML VIAL IV ONE (16:25)
[2022-07-18] MEDS ORDERED: LIDOCAINE 2% MPF 5 ML VIAL ONE (16:25)
[2022-07-18] MEDS ORDERED: FENTANYL CITR 100 MCG/2 ML ONE (16:25)
[2022-07-18] MEDS ORDERED: dexAMETHasone 10 MG/ML VIAL ONE (16:42)
[2022-07-18] MEDS ORDERED: ONDANSETRON 4 MG/2 ML VIAL ONE (16:42)
[2022-07-18] MEDS ORDERED: KETOROLAC 30 MG/ML INJ ONE (16:42)
[2022-07-18] MEDS ORDERED: GLYCOPYRROLATE 0.2 MG/ML SYR ONE (16:58)
[2022-07-18] MEDS ORDERED: CODEINE 30MG/APAP 300MG TAB PO PRN (18:10)
[2022-07-18] MEDS ORDERED: CODEINE 30MG/APAP 300MG TAB ONE (18:55)
[2022-07-18 19:03] VITALS: BP 134/80; TEMP 97; O2SAT 95
--- NOTE | 2022-07-18 20:33 | OP ---
Surgeon: RAJ LUU Preoperative Diagnoses: 1.Phimosis. 2.History of prior penile bulking agent injection. Postoperative Diagnoses: 1.Phimosis. 2.History of prior penile bulking agent injection. Principal Procedures: 1.Sleeve circumcision. 2.Plastic surgical penile reconstruction/tissue rearrangement. 3.Penile block. Indication For Procedure: Mr. Sebastian presented to the Urology Clinic with a lumpy phallus desiring circumcision. He had some tissues with prior posthitis and phimosis that would develop associated wi th that. He desired to undergo circumcision and also noted the lumpiness beneath the skin of the pen is that he would like to have corrected if possible. Procedure In Detail: The patient was consented in the preoperative holding area before being transfe rred to the operative suite where general anesthesia was induced. He was given Ancef 2 g IV antimicr obial prophylaxis and pneumo boots were provided for DVT prophylaxis. Supine on the procedure table, his genitalia were shaved, prepped with Betadine and draped in standard fashion. The case was begun by performing a penile block using a 1:1 mixture of 0.25% Marcaine and 1% lidocaine. 10 cc was inje cted in the infrapubic midline dorsally as well as in the region of the neurovascular bundles bilater ally with a total of 30 cc approximately used. The procedure was then begun identifying a line for t he circumcision within the shaft skin at the iglesias of the glans. This was incised circumferentially and then a preputial margin line was identified approximately 1 cm within the prepuce proximal to th e coronal margin. The intervening skin was then incised in the dorsal midline and then fro m the underlying Chavez fascia by dividing the dartos layers until the intervening skin was completely removed. A careful fulguration was performed of any all bleeding vessels in the subcutaneous tissues . The previously observed lumpiness was associated with what appeared to be either silicone or perha ps collagen, though it was more silicone appearing, injected within the dorsal shaft of the penis cau sing lumpiness on the left side of the penis asymmetrically. As a result, tissue rearrangement was t hen performed by that lumpy silicone injected tissue by dividing it sharply from the inner most layer of the dermis and releasing the associated dartos fascia off Chavez fascia creating a flap o f tissue. That lumpy collagen or silicone injected tissue was then divided in the dorsal along the l ength of the shaft into 2 flaps, which were then rearranged and placed symmetrically in the dorsal haas rface of the penis overlying the dorsal midline until the bulkiness was distributed evenly in that re gion. This was sutured to the underlying Chavez fascia using 3-0 Vicryl. Then, the skin overlying the se tissue flaps was then approximated in the midline using 4 quadrant sutures of 3-0 chromic. The in tervening tissues were then approximated using a running horizontal mattress of 3-0 chromic suture. In the end, the cosmetic result was excellent and the phallus and subcutaneous tissues were symmetric in appearance. A Jeyson and Coban were applied for gentle pressure dressing and bacitracin was appli ed to the circumcision line in the glans. The patient was then awakened from general anesthesia, tra nsferred to a stretcher, and then transferred to the recovery room in good condition. Complications: None. Discharge Disposition: He should follow up with me in the Urology clinic somewhere in the next 2-6 w nicolas. EMELINA/MIKE Voice ID: [id number] Report ID: [id number]
== END 2022-07-18 19:00 | disposition home or self-care (01) ==
LOC: OR 11:01
PROVIDERS: ATTEND Urology
PROC: 0JX Subcutaneous Tissue and Fascia, Transfer (ICD-10-PCS; 2022-07-18)
PROC: 0VTTXZZ Resection of Prepuce, External Approach (ICD-10-PCS; principal; 2022-07-18 13:00)
DX: N47.1 Phimosis (principal); E29.1 Testicular hypofunction; E78.5 Hyperlipidemia, unspecified; N52.9 Male erectile dysfunction, unspecified
CPT/HCPCS: 85025; 80048; 36415; 85610; 88304; 81003; 54150; 14040; J2704; J2001; J3010; J1100; J7120; J2405

== ENCOUNTER 2022-11-07 08:06 | Emergency (ER) | payer OTHER ==
--- OUTSIDE RECORDS SUMMARY | 2022-11-07 08:09 | XMS REPORT | Continuity of Care Document ---
:1975 Author Organization [facility] t Address [address] [facility] [address] [place] [address] Care Team Providers Name Role Phone Behzad Brown Attending Clinician Unavailable Payers Payer Name Policy Type Policy Number Effective Date Expiration Date [place] [address] [id number] 2021 Common Sp gwen 00:00:00 [facility] Problems Condition Condition Condition Status Onset Resolution Last Treating Co mments Source Name Details Category Date Date Treatment Clinician Date [id number] Hypogonadi Problem Com mon sm in male Spirit [facility] [id number] Hypertrigl Problem Co mmon yceridemia [facility] [id number] Nonalcohol Problem Co mmon ic fatty Spirit liver - [facility] disease [facility] [id number] Mixed Problem Common hyperlipid Spirit emia - [facility] [id number] Enlarged Problem Commo n tonsils Spirit and - [facility] adenoids [facility] [id number] Body mass Problem Com mon index Spirit [BMI] - [facility] 31.0-31.9, [facility] [id number] Other Problem Common obesity Spirit due to - [facility] excess [facility] [id number] ED Problem Common (erectile Spirit dysfunctio - [facility] n) of [facility] [id number] Testicular Problem Co mmon hypofuncti Spirit on - [facility] [id number] Posthitis Problem Comm on [facility] Allergies, Adverse Reactions, Alerts This patient has no known allergies or adverse reactions. Social History Social Habit Start Date Stop Date Quantity Comments Source History of Tobacco Use Co mmon [facility] Sex Assigned At Com mon [facility] Smoking Status Start Date Stop Date Source Never Smoker Common [facility] Medications Ordered Filled Start Stop Current Ordering Indication Dosage Frequency Signature Comments Components Source Medication Medication Date Date Medication? Clinician (SIG) Name Name clomiPHENE clomiPHENE 2021-09 No QD clomiPHENE Citrate 50 Citrate 50 0-21 Citrate 50 MG MG 00:00: MG 00 clomiPHENE clomiPHENE 2021-09 No QD clomiPHENE Citrate 50 Citrate 50 0-21 Citrate 50 MG MG 00:00: MG 00 clomiPHENE clomiPHENE 2021-09 No QD clomiPHENE Citrate 50 Citrate 50 0-21 Citrate 50 MG MG 00:00: MG 00 clomiPHENE clomiPHENE 2021-09 No QD clomiPHENE Citrate 50 Citrate 50 0-21 Citrate 50 MG MG 00:00: MG 00 Tadalafil Tadalafil 2-0 2023- No Tadalafil 20 MG 20 MG 05-1705 20 MG 00:00: 00:00 00 :00 Tadalafil Tadalafil 2022-0 2023- No Tadalafil 20 MG 20 MG 05-17-05 20 MG 00:00: 00:00 00 :00 Tadalafil Tadalafil 2022-0 2023- No Tadalafil 20 MG 20 MG 05-17-05 20 MG 00:00: 00:00 00 :00 Tadalafil Tadalafil 2022-0 2023- No Tadalafil 20 MG 20 MG 05-17-05 20 MG 00:00: 00:00 00 :00 Tadalafil Tadalafil 2022-0 2023- No Tadalafil 20 MG 20 MG 05-17-05 20 MG 00:00: 00:00 00 :00 Tadalafil Tadalafil 2022-0 2023- No Tadalafil 20 MG 20 MG 05-17-05 20 MG 00:00: 00:00 00 :00 Tadalafil Tadalafil 2022-0 2023- No Tadalafil 20 MG 20 MG 05-1705 20 MG 00:00: 00:00 00 :00 Clotrimazol Clotrimazol 2021- No 1{appli BID Clotrimazo e-Betametha e-Betametha 05-17 cation} le-Betamet sone 1-0.05 sone 1-0.05 00:00: 00:00 hasone % % 00 :00 1-0.05 % Clotrimazol Clotrimazol 2021- No 1{appli BID Clotrimazo e-Betametha e-Betametha 05-17 cation} le-Betamet sone 1-0.05 sone 1-0.05 00:00: 00:00 hasone % % 00 :00 1-0.05 % Clotrimazol Clotrimazol 2021- No 1{appli BID Clotrimazo e-Betametha e-Betametha 05-17 cation} le-Betamet sone 1-0.05 sone 1-0.05 00:00: 00:00 hasone % % 00 :00 1-0.05 % Lipitor 10 Lipitor 10 No 1{table QD Lipitor 10 MG MG 2-04 t} MG 00:00: 00 Lipitor 10 Lipitor 10 No 1{table QD Lipitor 10 MG MG t} MG Lipitor 10 Lipitor 10 No 1{table QD Lipitor 10 MG MG t} MG Lipitor 20 Lipitor 20 No 1{table QD Lipitor 20 MG MG t} MG Lipitor 10 Lipitor 10 No 1{table QD Lipitor 10 MG MG t} MG Lipitor 10 Lipitor 10 No 1{table QD Lipitor 10 MG MG t} MG Lipitor 10 Lipitor 10 No 1{table QD Lipitor 10 MG MG t} MG Lipitor 10 Lipitor 10 No 1{table QD Lipitor 10 MG MG t} MG Lipitor 10 Lipitor 10 No 1{table QD Lipitor 10 MG MG t} MG Lipitor 10 Lipitor 10 No 1{table QD Lipitor 10 MG MG t} MG Vital Signs Vital Name Observation Time Observation Value Comments Source height 2022-10-13 10:30:00 65 [in_i] Common [facility] weight 2022-10-13 10:30:00 195 [lb_av] Common [facility] temperature 2022-10-13 10:30:00 97.0 [degF] Common [facility] bmi 2022-10-13 10:30:00 32.45 kg/m2 Common [facility] oximetry 2022-10-13 10:30:00 96 % Common [facility] respiratory rate 2022-10-13 10:30:00 16 /min Comm on [facility] blood pressure 2022-10-13 10:30:00 137 mm[Hg] Common [facility] - systolic [facility] blood pressure 2022-10-13 10:30:00 70 mm[Hg] Common [facility] - diastolic [facility] height 2022-08-21 14:45:00 65 [in_i] Common [facility] weight 2022-08-21 14:45:00 190 [lb_av] Common [facility] temperature 2022-08-21 14:45:00 97.6 [degF] Common [facility] bmi 2022-08-21 14:45:00 31.61 kg/m2 [facility] oximetry 2022-08-21 14:45:00 99 % Common [facility] respiratory rate 2022-08-21 14:45:00 18 /min Comm on [facility] blood pressure 2022-08-21 14:45:00 132 mm[Hg] Common [facility] - systolic [facility] blood pressure 2022-08-21 14:45:00 68 mm[Hg] Common [facility] - diastolic [facility] weight 2022-07-26 08:00:00 185 [lb_av] Common [facility] temperature 2022-07-26 08:00:00 97.6 [degF] Common S pirit [facility] bmi 2022-07-26 08:00:00 30.78 kg/m2 Common [facility] oximetry 2022-07-26 08:00:00 99 % Common [facility] respiratory rate 2022-07-26 08:00:00 16 /min Comm on [facility] blood pressure 2022-07-26 08:00:00 126 mm[Hg] Common [facility] - systolic [facility] blood pressure 2022-07-26 08:00:00 86 mm[Hg] Common [facility] - diastolic [facility] height 2022-07-26 08:00:00 65 [in_i] Common S [facility] weight 2022-06-30 10:00:00 187.6 [lb_av] [facility] temperature 2022-06-30 10:00:00 98.1 [degF] [facility] bmi 2022-06-30 10:00:00 31.21 kg/m2 [facility] oximetry 2022-06-30 10:00:00 96 % [facility] respiratory rate 2022-06-30 10:00:00 18 /min Comm on [facility] blood pressure 2022-06-30 10:00:00 144 mm[Hg] [facility] - systolic [facility] blood pressure 2022-06-30 10:00:00 84 mm[Hg] Common [facility] - diastolic [facility] height 2022-06-30 10:00:00 65 [in_i] Common [facility] height 2022-05-17 17:00:00 65 [in_i] Common [facility] weight 2022-05-17 17:00:00 184.8 [lb_av] [facility] temperature 2022-05-17 17:00:00 98.3 [degF] Common [facility] bmi 2022-05-17 17:00:00 30.75 kg/m2 Common [facility] oximetry 2022-05-17 17:00:00 99 % Common S pirit [facility] respiratory rate 2022-05-17 17:00:00 16 /min Comm on [facility] blood pressure 2022-05-17 17:00:00 131 mm[Hg] Common [facility] - systolic [facility] blood pressure 2022-05-17 17:00:00 80 mm[Hg] Common [facility] - diastolic [facility] height 2022-04-14 11:00:00 65 [in_i] Common [facility] weight 2022-04-14 11:00:00 187.4 [lb_av] [facility] temperature 2022-04-14 11:00:00 97.7 [degF] Common [facility] bmi 2022-04-14 11:00:00 31.18 kg/m2 Common [facility] oximetry 2022-04-14 11:00:00 97 % Common [facility] respiratory rate 2022-04-14 11:00:00 17 /min Comm on [facility] blood pressure 2022-04-14 11:00:00 131 mm[Hg] Common [facility] - systolic [facility] blood pressure 2022-04-14 11:00:00 79 mm[Hg] Common [facility] - diastolic [facility] height 2022-01-13 11:00:00 65 [in_i] Common S pirit [facility] weight 2022-01-13 11:00:00 188.4 [lb_av] Common [facility] temperature 2022-01-13 11:00:00 97.8 [degF] Common [facility] bmi 2022-01-13 11:00:00 31.35 kg/m2 Common S [facility] oximetry 2022-01-13 11:00:00 95 % Common [facility] respiratory rate 2022-01-13 11:00:00 17 /min Comm on [facility] blood pressure 2022-01-13 11:00:00 137 mm[Hg] Common [facility] - systolic [facility] blood pressure 2022-01-13 11:00:00 85 mm[Hg] Common [facility] - diastolic [facility] height 2021-10-14 08:20:00 65 [in_i] [facility] weight 2021-10-14 08:20:00 190.3 [lb_av] Common [facility] temperature 2021-10-14 08:20:00 97.3 [degF] [facility] bmi 2021-10-14 08:20:00 31.66 kg/m2 [facility] oximetry 2021-10-14 08:20:00 96 % [facility] respiratory rate 2021-10-14 08:20:00 17 /min Comm on [facility] blood pressure 2021-10-14 08:20:00 114 mm[Hg] Common [facility] - systolic [facility] blood pressure 2021-10-14 08:20:00 52 mm[Hg] Common [facility] diastolic [facility] Procedures This patient has no known procedures. Encounters Start End Encounter Admission Attending Care Care Encounter Source Date/Time Date/Time Type Type Clinicians Facility Department ID 2022-10-11 Outpatient Brown, STLMLC STLMLC [id number] Common 14:07:03 Behzad [id number] [facility] 2021-10-13 Outpatient Brown, STLMLC STLMLC [id number] Common 09:11:02 Behzad [facility] 2021-10-05 Outpatient Brown, STLMLC STLMLC [id number] Common 12:59:55 Behzad [id number] [facility] 2022-10-13 2022-10-13 OFFICE STLMLC STLMLC [id number] Co mmon 00:00:00 00:00:[address] [facility] 4 [facility] 2022-08-21 2022-08-21 OFFICE STLMLC STLMLC [id number] Co mmon 00:00:00 00:00:00 VISIT Spirit ESTAB PT - [facility]I LEVEL 2 [facility] 2022-07-26 2022-07-26 OFFICE STLMLC STLMLC [id number] Co mmon 00:00:00 00:00:00 VISIT Spirit ESTAB PT - [facility] LEVEL 2 [facility] 2022-06-30 2022-06-30 OFFICE STLMLC STLMLC [id number] Co mmon 00:00:00 00:00:00 VISIT EST Spir it PT LEVEL 3 - [facility] 2022-05-19 2022-05-19 (TEL) STLMLC STLMLC [id number] Co mmon 00:00:00 00:00:00 [facility] 2022-05-17 2022-05-17 OFFICE STLMLC STLMLC [id number] Co mmon 00:00:00 00:00:00 VISIT NEW Spir it PT LEVEL 4 - [facility] 2022-05-17 2022-05-17 (TEL) STLMLC STLMLC [id number] Co mmon 00:00:00 00:00:00 [facility] 2022-04-14 2022-04-14 OFFICE STLMLC STLMLC [id number] Co mmon 00:00:00 00:00:00 VISIT EST Spir it PT LEVEL 3 [facility] 2022-01-13 2022-01-13 PREV VISIT STLMLC STLMLC [id number] Common 00:00:00 00:00:00 EST AGE Flo 40-64 - [facility] 2021-10-14 2021-10-14 OFFICE STLMLC STLMLC [id number] Co mmon 00:00:00 00:00:00 VISIT Spirit ESTAB PT - [facility]I LEVEL 4 [facility] 2021-02-02 2021-02-02 Outpatient STLMLC STLMLC [id number] Common 00:00:00 00:00:00 [facility] 2021-01-12 2021-01-12 Outpatient STLMLC STLMLC [id number] Common 00:00:00 00:00:00 [facility] Results This patient has no known results.
[2022-11-07 08:38] LABS: Absolute Lymphocytes (CBC) 0.8 K/uL (0.7-4.9); Hematocrit 41.1 % (39.6-49.0); Lymphocytes % 15.5 % (15.3-44.8); MCV 94.7 fL (80-100); MPV 7.1 fL (7.6-11.3); RBC Red Blood Cell Count 4.35 M/uL (4.33-5.43)
[2022-11-07] MEDS ORDERED: MECLIZINE HCL 12.5 MG TAB ONE (08:38)
[2022-11-07 08:55] LABS: Potassium 4.3 mmol/L (3.5-5.1); Troponin High Sensitivity 5.1 pg/mL (<58.9)
--- NOTE | 2022-11-07 08:57 | RAD REPORT ---
EXAM DESCRIPTION: CT - Head Brain Wo Cont - 11/07/2022 8:36 am CLINICAL HISTORY: DIZZINESS COMPARISON: No comparisons TECHNIQUE: Noncontrast head CT images ad were obtained without IV contrast. Multiplanar reformats we re generated and reviewed. All CT scans are performed using dose optimization technique as appropriate and may include automated exposure control or mA/KV adjustment according to patient size. FINDINGS: No intracranial hemorrhage, mass, or edema. Midline structures are unremarkable. Normal ventricular caliber for age. Bruno-white matter differentiation is preserved, without evidence of acute infarct. No abnormal extra- axial fluid collections. Mastoid air cells and visualized portions of the paranasal sinuses are clear. No acute bony findings. IMPRESSION: No evidence of an acute intracranial process.
--- NOTE | 2022-11-07 10:17 | RAD REPORT ---
EXAM DESCRIPTION: CT - Head angio - 11/07/2022 9:45 am CLINICAL HISTORY: DIZZINESS COMPARISON: Head Brain Wo Cont dated 11/07/2022 TECHNIQUE: Axial CT angiography images of the head was performed with multiplanar and maximum intens ity projection reconstructions. Images performed following intravenous administration of 95mL Isovue 370. All CT scans are performed using dose optimization technique as appropriate and may include automated exposure control or mA/KV adjustment according to patient size. FINDINGS: No evidence of large vessel occlusion. No evidence of aneurysm or dissection flap is detec sariah. No flow-limiting stenosis or vascular malformation identified. Antegrade flow is seen in the vertebral arteries. The vertebral arteries are codominant. The visualized dural venous sinuses are grossly patent. IMPRESSION: No evidence of large vessel occlusion or flow-limiting stenosis.
--- NOTE | 2022-11-07 10:25 | RAD REPORT ---
EXAM DESCRIPTION: CT - Neck Angio - 11/07/2022 9:45 am CLINICAL HISTORY: dizziness COMPARISON: Head angio dated 11/07/2022 TECHNIQUE: Axial CT angiography images of the head was performed with multiplanar and maximum intens ity projection reconstructions. Images performed following intravenous administration of 85mL Isovue 370. All CT scans are performed using dose optimization technique as appropriate and may include automated exposure control or mA/KV adjustment according to patient size. FINDINGS: A left aortic arch is identified with normal three vessel configuration of the great vesse ls. No significant flow abnormality is seen of the common carotid bilaterally. No significant stenosis is identified involving the cervical segments of both internal carotid arteri es. Normal flow is seen within both vertebral arteries. IMPRESSION: No significant flow abnormality of the neck vessels is identified.
--- NOTE | 2022-11-07 10:46 | RAD REPORT ---
EXAM DESCRIPTION: MRI - Brain Wo Cont - 11/07/2022 10:09 am CLINICAL HISTORY: DIZZINESS COMPARISON: Head CT and CT angiogram of earlier the same day TECHNIQUE: Multiplanar multisequence MRI of the brain performed without IV contrast. FINDINGS: Motion artifact somewhat limits evaluation, despite attempts at repeat imaging. No evidence of acute infarct or other diffusion signal abnormality. No evidence of acute intracranial hemorrhage or abnormal extra-axial fluid collections. Ventricles are within normal for age. Midline structures are unremarkable. Mild burden of scattered subcortical and deep white matter T2/FLAIR hyperintensities, nonspecific, bu t may suggest chronic small vessel ischemic changes. Other differential considerations include vascul ar migraine, sequelae of prior infectious or inflammatory process, less likely demyelinating disease. No mass effect or midline shift. Major vascular flow voids are preserved. Mastoid air cells and paranasal sinuses are clear. IMPRESSION: No acute intracranial process. No evidence of ventriculomegaly or mass effect. Mild burden of nonspecific white matter T2 hyperintensities, most suggestive of early chronic small v essel ischemic changes.
--- NOTE | 2022-11-07 10:55 | EDPHYS ---
Physician Documentation [facility] Name: Nadja Sebastian Age: 47 yrs Sex: Male : 1975 Arrival Date: 11/07/2022 Time: 08:08 Bed 8 Private MD: Behzad Brown ED Physician Pedro Foote HPI: 11/07 08:16 This 47 yrs old Male presents to ER via Ambulatory with complaints of jmm Dizziness, Nausea, Numbness Of Hand. 08:16 The patient presents with dizziness. Onset: The symptoms/episode began/occurred jmm acutely. Modifying factors: The symptoms are alleviated by nothing, the symptoms are aggravated by standing up, changing position. Is a 47-year-old male with history of hyperlipidemia the presents emerged department with complaints of dizziness when he awoke. Patient states he felt normal last night before going to bed. States that he feels lightheaded like he is going to collapse when he stands up. Also complains of some numbness to his right hand. Denies unilateral weakness.. Historical: - Allergies: 08:21 No Known Allergies; ap3 - Home Meds: 08:21 atorvastatin oral [Active]; ap3 - PMHx: 08:21 Hyperlipidemia; ap3 - Immunization history:: Adult Immunizations up to date. - Social history:: Smoking status: Patient denies any tobacco usage or history of. Patient uses alcohol, only on a social basis. ROS: 08:16 Constitutional: Negative for fever, chills, and weight loss, Cardiovascular: Negative jmm for chest pain, palpitations, and edema, Respiratory: Negative for shortness of breath, cough, wheezing, and pleuritic chest pain. 08:16 Neuro: Positive for dizziness. 08:16 All other systems are negative. Exam: 08:16 Constitutional: This is a well developed, well nourished patient who is awake, alert, jmm and in no acute distress. Head/Face: atraumatic. 08:16 Neck: Trachea midline, Supple Chest/axilla: Normal chest wall appearance and motion. Cardiovascular: Regular rate and rhythm. No edema appreciated Respiratory: Normal respirations, no respiratory distress appreciated Abdomen/GI: Non distended Back: Normal ROM Skin: General appearance color normal MS/ Extremity: Moves all extremities, no obvious deformities appreciated, no edema noted to the lower extremities 08:16 Eyes: Nystagmus: Horizontal nystagmus noted bilaterally, fatigable. 08:16 Neuro: Orientation: is normal, Mentation: is normal, Memory: is normal, Cerebellar function: normal finger to nose testing, heel to dacosta testing is normal, Motor: is normal. 08:16 Psych: Behavior/mood is pleasant, cooperative. Vital Signs: 08:19 BP 135 / 91; Pulse 81; Resp 18; Temp 97.9; Pulse Ox 96% on R/A; Weight 83.91 kg; Height ap3 5 ft. 5 in. (165.10 cm); 09:33 BP 126 / 84; Pulse 66; Resp 17; Pulse Ox 97% on R/A; ll1 10:19 BP 135 / 90; Pulse 82; Resp 17; ll1 11:08 BP 123 / 81; Pulse 81; Resp 17; Pulse Ox 97% on R/A; Pain 0/10; ll1 08:19 Body Mass Index 30.79 (83.91 kg, 165.10 cm) ap3 MDM: 08:16 Patient medically screened. [facility] 10:54 Data reviewed: vital signs, nurses notes. [facility] 15:54 Differential diagnosis: CVA, vertigo, acute [place]. Data reviewed: vital signs, nurses [facility] notes. Consideration of Admission/Observation. I considered the following discharge prescriptions or medication management in the emergency department Medications were administered in the Emergency Department. See MAR. Historians other than the Patient: . Counseling: I had a detailed discussion with the patient and/or guardian regarding: the historical points, exam findings, and any diagnostic results supporting the discharge/admit diagnosis, lab results, radiology results, to return to the emergency department if symptoms worsen or persist or if there are any questions or concerns that arise at home. ED course: Symptoms alleviated in the ED. Patient is able ambulate without difficulty. Do not currently suspect a central cause of vertigo. Patient advised to follow-up with neurology for further evaluation otherwise given strict return precautions. Patient and understood and agrees plan of care. 11/07 08:23 Order name: Basic Metabolic Panel [facility] 11/07 08:23 Order name: CBC with Diff [facility] 11/07 08:23 Order name: Troponin HS [facility] 11/07 08:41 Order name: CBC with Automated Diff; Complete Time: 08:41 EDDE 11/07 08:55 Order name: Basic Metabolic Panel; Complete Time: 09:15 [facility] 11/07 08:55 Order name: Troponin High Sensitivity; Complete Time: 09:15 [facility] 11/07 08:23 Order name: EKG; Complete Time: 08:24 [facility] 11/07 08:23 Order name: Cardiac monitoring; Complete Time: 08:46 [facility] 11/07 08:23 Order name: CT Head Brain wo Cont [facility] 11/07 08:57 Order name: CT; Complete Time: 09:15 [facility] 11/07 09:16 Order name: Head Angio CT; Complete Time: 10:19 [facility] 11/07 09:16 Order name: Neck Angio CT; Complete Time: 10:25 [facility] 11/07 09:16 Order name: MRI - Brain Wo Cont; Complete Time: 10:53 [facility] 11/07 08:23 Order name: EKG - Nurse/Tech; Complete Time: 08:46 [facility] 11/07 08:23 Order name: IV Saline Lock; Complete Time: 08:24 [facility] 11/07 08:23 Order name: Labs collected and sent; Complete Time: 08:24 [facility] 11/07 08:23 Order name: O2 Per Protocol; Complete Time: 08:24 [facility] 11/07 08:23 Order name: O2 Sat Monitoring; Complete Time: 08:24 [facility] Administered Medications: 08:46 Drug: Meclizine 50 mg Route: PO; ll1 09:33 Follow up: Response: No adverse reaction; RASS: Alert and Calm (0) ll1 Disposition: 16:30 Co-signature as Attending Physician, Pedro Foote MD I reviewed the patient's care rn provided by the Advanced Practice Provider and agree with the diagnosis and treatment plan. Disposition Summary: 11/07/22 10:55 Discharge Ordered Location: Home [facility] Condition: Stable [facility] Diagnosis - Dizziness and giddiness [facility] Followup: [facility] - With: Logan Balderas MD - When: 2 - 3 days - Reason: Recheck today's complaints, Continuance of care, Re-evaluation by your physician Followup: [facility] - With: Edgar Rodas MD - When: 2 - 3 days - Reason: Recheck today's complaints, Continuance of care, Re-evaluation by your physician Discharge Instructions: - Discharge Summary Sheet [facility] - Dizziness [facility] Forms: - Medication Reconciliation Form jmm - Thank You Letter jmm - Antibiotic Education jmm - Prescription Opioid Use jmm - Work release form sp4 Prescriptions: - Meclizine 25 mg Oral Tablet - take 1 tablet by ORAL route every 8 hours As needed; 30 tablet; Refills: 0, jmm Product Selection Permitted Signatures: Dispatcher [employer] EDOvi Hoover PA PA jmm Nieto, Roman, MD MD rn Prokisch, Amanda RN RN ap3 Netta Mccallum RN RN ll1
--- NOTE | 2022-11-07 10:55 | ER ---
Nurse's Notes [facility] Name: Nadja Sebastian Age: 47 yrs Sex: Male : 1975 Arrival Date: 11/07/2022 Time: 08:08 Bed 8 Private MD: Behzad Brown Diagnosis: Dizziness and giddiness Presentation: 11/07 08:19 Chief complaint: Patient states: he woke up this morning at 0630 feeling dizzy, light ap3 headed, nauseous, and had a "tingling feeling" in his right hand. Patient reports he went to bed with none of these reported symptoms. Coronavirus screen: At this time, the client does not indicate any symptoms associated with coronavirus-19. Ebola Screen: No symptoms or risks identified at this time. Initial Sepsis Screen: Does the patient meet any 2 criteria? No. Patient's initial sepsis screen is negative. Does the patient have a suspected source of infection? No. Patient's initial sepsis screen is negative. Risk Assessment: Do you want to hurt yourself or someone else? Patient reports no desire to harm self or others. Onset of symptoms was November 06, 2022. 08:19 Method Of Arrival: Ambulatory ap3 08:19 Acuity: IRVIN 3 ap3 Triage Assessment: 08:22 General: Appears uncomfortable, Behavior is calm, cooperative. General:. Pain: Denies ap3 pain. Neuro: Level of Consciousness is awake, alert, obeys commands, Oriented to person, place, time, situation, Reports dizziness, "tingling feeling" in his right hand. Cardiovascular: Patient's skin is warm and dry. Respiratory: Airway is patent Respiratory effort is even, unlabored, Respiratory pattern is regular, symmetrical. GI: Reports nausea. Historical: - Allergies: 08:21 No Known Allergies; ap3 - Home Meds: 08:21 atorvastatin oral [Active]; ap3 - PMHx: 08:21 Hyperlipidemia; ap3 - Immunization history:: Adult Immunizations up to date. - Social history:: Smoking status: Patient denies any tobacco usage or history of. Patient uses alcohol, only on a social basis. Screenin:18 [facility] ED Fall Risk Assessment (Adult) Score/Fall Risk Level 0 - 2 = Low Risk ll1 Oriented to surroundings, Maintained a safe environment, Educated pt \\T\\ family on fall prevention, incl call for assistance when getting out of bed, Hourly rounding (assess needs \\T\\ fall precautionary measures) done. Abuse screen: Denies threats or abuse. Nutritional screening: No deficits noted. Tuberculosis screening: No symptoms or risk factors identified. Assessment: 08:19 Reassessment: No changes from previously documented assessment. Ovi CHILD at . ll1 08:46 Reassessment: No changes from previously documented assessment. Patient and/or family ll1 updated on plan of care and expected duration. Pain level reassessed. Patient is alert, oriented x 3, equal unlabored respirations, skin warm/dry/pink. 09:33 Reassessment: No changes from previously documented assessment. Patient and/or family ll1 updated on plan of care and expected duration. Pain level reassessed. Patient is alert, oriented x 3, equal unlabored respirations, skin warm/dry/pink. Patient states feeling better. Gait steady to restroom.. 10:18 Reassessment: No changes from previously documented assessment. Patient and/or family ll1 updated on plan of care and expected duration. Pain level reassessed. Patient is alert, oriented x 3, equal unlabored respirations, skin warm/dry/pink. back from MRI, gait steady Patient states feeling better. Patient states symptoms have improved. 11:09 Reassessment: No changes from previously documented assessment. Patient and/or family ll1 updated on plan of care and expected duration. Pain level reassessed. Patient is alert, oriented x 3, equal unlabored respirations, skin warm/dry/pink. Patient states feeling better. Vital Signs: 08:19 BP 135 / 91; Pulse 81; Resp 18; Temp 97.9; Pulse Ox 96% on R/A; Weight 83.91 kg; Height ap3 5 ft. 5 in. (165.10 cm); 09:33 BP 126 / 84; Pulse 66; Resp 17; Pulse Ox 97% on R/A; ll1 10:19 BP 135 / 90; Pulse 82; Resp 17; ll1 11:08 BP 123 / 81; Pulse 81; Resp 17; Pulse Ox 97% on R/A; Pain 0/10; ll1 08:19 Body Mass Index 30.79 (83.91 kg, 165.10 cm) ap3 ED Course: 08:08 Patient arrived in ED. am2 08:08 Behzad Brown DO is Private Physician. am2 08:08 Ovi Regan PA is PHCP. [facility] 08:09 Pedro Foote MD is Attending Physician. [facility] 08:12 Netta Mccallum, RN is Primary Nurse. ll1 08:12 Arm band placed on Patient placed in an exam room, on a stretcher. ll1 08:18 Patient has correct armband on for positive identification. Bed in low position. Call ll1 light in reach. Client placed on continuous cardiac and pulse oximetry monitoring. NIBP monitoring applied. potline monitor on. 08:21 Triage completed. ap3 08:30 Inserted saline lock: 22 gauge in right antecubital area, using aseptic technique. ll1 Blood collected. 09:34 No provider procedures requiring assistance completed. ll1 09:[address] In Process Unspecified. EDMS 09:[address] In Process Unspecified. EDMS 10:02 MRI - Brain Wo Cont In Process Unspecified. EDMS 10:54 Logan Balderas MD is Referral Physician. jmm 10:55 Edgar Rodas MD is Referral Physician. [facility] 11:09 IV discontinued, intact, bleeding controlled, No redness/swelling at site. Pressure ll1 dressing applied. Administered Medications: 08:46 Drug: Meclizine 50 mg Route: PO; ll1 09:33 Follow up: Response: No adverse reaction; RASS: Alert and Calm (0) ll1 Medication: 08:18 VIS not applicable for this client. ll1 Outcome: 10:55 Discharge ordered by . [facility] 11:09 Discharged to home ambulatory. ll1 11:09 Condition: stable 11:09 Discharge instructions given to patient, family, Instructed on discharge instructions, follow up and referral plans. medication usage, Demonstrated understanding of instructions, follow-up care, medications, Prescriptions given X 1. 11:09 Patient left the ED. ll1 Signatures: Dispatcher [employer] EDMS Ovi eRgan PA PA jmm Moreno, Amanda am2 Willa King, RN RN ap3 Netta Mccallum, RN RN ll1
[2022-11-07 11:20] VITALS: TEMP 97.9
[2022-11-07 11:51] VITALS: O2SAT 97
[2022-11-07 11:54] VITALS: BP 123/81
--- NOTE | 2022-11-07 12:49 | EKG ---
Test Date: 2022-11-07 Test Time: 08:43:21 Egg Producer: PATTY MEASUREMENT RESULTS: Intervals: Rate: 77 NE: 152 QRSD: 90 QT: 380 QTc: 430 [place]: P: 57 NE: 152 QRS: 23 T: 41 INTERPRETIVE STATEMENTS: Normal sinus rhythm Nonspecific T wave abnormality Abnormal ECG Compared to ECG 03/23/2022 10:18:51 T-wave abnormality now present Electronically Signed On 11-07-22 12:47:46 [facility] [employer] by Celestino العلي
== END 2022-11-07 11:09 | disposition home or self-care (01) ==
LOC: ER 08:06
DX: R42 Dizziness and giddiness (principal); E78.5 Hyperlipidemia, unspecified
CPT/HCPCS: 93005; 85025; 80048; 36415; 84484; 70450; 70496; 70498; 70551; 99284; Q9967; J8597